=== PATIENT | female | born 1945 | race Caucasian/White ===

== ENCOUNTER 2018-02-01 20:46 | Emergency (ER) | payer MEDICARE, OTHER ==
[~2018-02-01] VITALS: Ht 157.5 cm; Wt 47.6 kg
[~2018-02-01 20:46] MED LIST: CONEST.625 PO; Prednisone20 MG PO; Robaxin500 MG PO; Ultram50 MG PO
[2018-02-01] MEDS ORDERED: HYDR1TAB94 PO (21:35)
== END 2018-02-01 21:43 | disposition home or self-care (01) ==
LOC: ER 20:46
DX: T63.461A Toxic effect of venom of wasps, accidental (unintentional), initial encounter (principal); Z88.8 Allergy status to other drugs, medicaments and biological substances
CPT/HCPCS: 99282

== ENCOUNTER 2018-02-02 04:20 | Emergency (ER) | payer MEDICARE, OTHER ==
[~2018-02-02] VITALS: Ht 157.5 cm; Wt 47.6 kg
[~2018-02-02 04:20] MED LIST changes: +HYDR1TAB94 PO
== END 2018-02-02 05:53 | disposition home or self-care (01) ==
LOC: ER 04:20
DX: T63.441A Toxic effect of venom of bees, accidental (unintentional), initial encounter (principal); Z88.8 Allergy status to other drugs, medicaments and biological substances
CPT/HCPCS: 99283; J1100; Q0163

== ENCOUNTER 2018-11-22 00:40 | Emergency (ER) | payer MEDICARE, OTHER ==
[~2018-11-22] VITALS: Ht 157.5 cm; Wt 47.6 kg
== END 2018-11-22 02:40 | disposition home or self-care (01) ==
LOC: ER 00:40
DX: M79.645 Pain in left finger(s) (principal); Z88.8 Allergy status to other drugs, medicaments and biological substances; Z79.899 Other long term (current) drug therapy
CPT/HCPCS: 29125; 73140; 96372-59; 99283-25; A9270; J1885

== ENCOUNTER 2021-11-15 13:39 | Emergency (ER) | payer MEDICARE, OTHER ==
[~2021-11-15] VITALS: Ht 157.5 cm; Wt 47.6 kg
[2021-11-15] MEDS ORDERED: ERYT1OIN LEFTEYE (16:09)
== END 2021-11-15 16:13 | disposition home or self-care (01) ==
LOC: ER 13:39
DX: H11.32 Conjunctival hemorrhage, left eye (principal); Z88.5 Allergy status to narcotic agent
CPT/HCPCS: 99282-25; A9270